=== PATIENT | female | born 1950 | race Caucasian/White ===

== ENCOUNTER → 2023-05-16 10:18 | Outpatient (REF) | payer MEDICARE, OTHER, SELFPAY | LOC: RAD 10:18 | PROVIDERS: ATTENDING PHYSICIAN Physical Medicine & Rehabilitation; FAMILY PHYSICIAN Family Medicine | DX: M25.551 Pain in right hip (principal) | CPT/HCPCS: 73502 ==

== ENCOUNTER → 2023-05-27 09:54 | Outpatient (REF) | payer MEDICARE, OTHER, SELFPAY | LOC: HWRAD 09:54 | PROVIDERS: ATTENDING PHYSICIAN Internal Medicine Gastroenterology; FAMILY PHYSICIAN Family Medicine | DX: K76.0 Fatty (change of) liver, not elsewhere classified (principal) | CPT/HCPCS: 76700 ==

== ENCOUNTER → 2023-06-05 13:28 | Outpatient (REF) | payer MEDICARE, OTHER, SELFPAY | LOC: PAVMRI 13:28 | PROVIDERS: ATTENDING PHYSICIAN Physical Medicine & Rehabilitation; FAMILY PHYSICIAN Family Medicine | DX: M54.16 Radiculopathy, lumbar region (principal) | CPT/HCPCS: 72148 ==

== ENCOUNTER → 2023-06-15 12:59 | Outpatient (REF) | payer MEDICARE, OTHER, SELFPAY | LOC: PAVMRI 12:59 | PROVIDERS: ATTENDING PHYSICIAN Physical Medicine & Rehabilitation; FAMILY PHYSICIAN Family Medicine | DX: M54.12 Radiculopathy, cervical region (principal) | CPT/HCPCS: 72141 ==

== ENCOUNTER → 2023-06-26 10:02 | Outpatient (REF) | payer MEDICARE, OTHER, SELFPAY ==
[2023-06-26 10:34] LABS: % Basophils 1.1 % (0-2); % Eosinophils 3.2 % (0-6); % Immature Granulocytes 0.2 % (0-0.5); % Monocytes 11.8 % (1.7-9.3); % Neutrophils 54.7 % (42.2-75.2); Absolute Basophils 0.1 10^3/uL (0-0.2); Absolute Eosinophils 0.2 10^3/uL (0-0.7); Absolute Lymphocytes 1.4 10^3/uL (1.2-3.4); Absolute Monocytes 0.6 10^3/uL (0.1-0.6); Absolute Neutrophils 2.6 10^3/uL (1.4-6.5); Hematocrit 41.5 % (37.0-47.0); Hemoglobin 14.3 g/dL (12.0-16.0); Mean Corp Hgb Conc. 34.5 g/dL (33.0-37.0); Mean Corpuscular Hgb 32.1 pg (27.0-31.0); Mean Corpuscular Volume 93.3 fL (81.0-99.0); Mean Platelet Volume 9.6 fL (7.4-10.4); Nucleated Red Blood Cells % 0 %; Platelet Count 259 10^3/uL (130-400); Red Blood Cell Count 4.45 10^6/uL (4.20-5.40); Red Cell Dist. Width 11.7 % (11.5-14.5); White Blood Cell Count 4.8 10^3/uL (4.8-10.8)
[2023-06-26 11:02] LABS: ALT (SGPT) 27 U/L (0-35); AST (SGOT) 30 U/L (14-36); Albumin 4.8 g/dl (3.5-5.0); Alkaline Phosphatase 48 U/L (38-126); Blood Urea Nitrogen 17 mg/dl (7-17); Calcium 10.2 mg/dl (8.4-10.2); Carbon Dioxide 25 mmol/L (22-30); Chloride 104 mmol/L (98-107); Glucose 110 mg/dl (70-99); Potassium 4.7 mmol/L (3.5-5.1); Sodium 139 mmol/L (135-145); Total Bilirubin 0.8 mg/dl (0.2-1.3); Total Protein 7.4 g/dl (6.3-8.2); eGFR > 60.00
[2023-06-26 11:21] LABS: Free T4 0.94 ng/dl (0.78-2.19)
[2023-06-26 11:35] LABS: TSH 4.73 uIU/ml (0.47-4.68)
[2023-06-28 02:23] LABS: Total T3 (Sendout) 128 ng/dL (80-200)
== END ==
LOC: REG 10:02
PROVIDERS: ATTENDING PHYSICIAN Family Medicine
DX: R73.09 Other abnormal glucose (principal); I10 Essential (primary) hypertension; E03.8 Other specified hypothyroidism
CPT/HCPCS: 36415; 80053; 84439; 84443; 84480; 85025

== ENCOUNTER → 2023-07-27 15:55 | Outpatient (REF) | payer MEDICARE, OTHER, SELFPAY | LOC: RAD 15:55 | PROVIDERS: ATTENDING PHYSICIAN Family Medicine | DX: R93.89 Abnormal findings on diagnostic imaging of other specified body structures (principal); R91.8 Other nonspecific abnormal finding of lung field; Z68.27 Body mass index [BMI] 27.0-27.9, adult | CPT/HCPCS: 71260; Q9967 ==

== ENCOUNTER → 2023-08-14 17:40 | Outpatient (REF) | payer MEDICARE, OTHER, SELFPAY ==
[2023-08-14 19:20] LABS: Urine Albumin Negative (Neg - Trace); Urine Bilirubin Negative (Negative); Urine Character Clear (Clear); Urine Color Yellow; Urine Glucose Negative (Negative); Urine Ketone Negative (Negative); Urine Leukocyte Trace (Negative); Urine Nitrite Negative (Negative); Urine Occult Blood Negative (Negative); Urine Urobilinogen Negative (Neg - 1+)
== END ==
LOC: CLAB 17:40
PROVIDERS: ATTENDING PHYSICIAN Obstetrics & Gynecology
DX: N39.0 Urinary tract infection, site not specified (principal)
CPT/HCPCS: 81003; 81015; 87086

== ENCOUNTER → 2023-08-22 09:38 | Outpatient (REF) | payer MEDICARE, OTHER, SELFPAY ==
[2023-08-22 10:35] LABS: HDL Cholesterol 86 mg/dl; LDL Cholesterol, Calculated 87 mg/dl; Total Cholesterol 187 mg/dl (50-199); Triglyceride 70 mg/dl (10-149); Very Low Density Lipoprotein 14 mg/dl (0-30)
== END ==
LOC: REG 09:38
PROVIDERS: ATTENDING PHYSICIAN Internal Medicine; FAMILY PHYSICIAN Family Medicine; REFERRING PHYSICIAN Internal Medicine Endocrinology, Diabetes & Metabolism
DX: Q24.5 Malformation of coronary vessels (principal); E78.00 Pure hypercholesterolemia, unspecified
CPT/HCPCS: 36415; 80061

== ENCOUNTER → 2023-12-23 12:55 | Outpatient (REF) | payer MEDICARE, OTHER, SELFPAY | LOC: WDC 12:55 | PROVIDERS: ATTENDING PHYSICIAN Obstetrics & Gynecology; FAMILY PHYSICIAN Family Medicine | DX: Z78.0 Asymptomatic menopausal state (principal); Z12.31 Encounter for screening mammogram for malignant neoplasm of breast | CPT/HCPCS: 77063; 77067; 77080 ==

== ENCOUNTER → 2024-01-02 08:50 | Outpatient (REF) | payer MEDICARE, OTHER, SELFPAY ==
[2024-01-02 10:43] LABS: Blood Urea Nitrogen 16 mg/dl (7-17)
[2024-01-02 10:46] LABS: Free T4 0.78 ng/dl (0.78-2.19)
[2024-01-02 11:00] LABS: TSH 5.15 uIU/ml (0.47-4.68)
== END ==
LOC: REG 08:50
PROVIDERS: ATTENDING PHYSICIAN Family Medicine; OTHER PHYSICIAN Internal Medicine; REFERRING PHYSICIAN Internal Medicine Endocrinology, Diabetes & Metabolism
DX: E04.1 Nontoxic single thyroid nodule (principal); Z01.812 Encounter for preprocedural laboratory examination
CPT/HCPCS: 36415; 82565; 84439; 84443; 84520

== ENCOUNTER → 2024-01-28 12:07 | Outpatient (REF) | payer MEDICARE, OTHER, SELFPAY | LOC: RAD 12:07 | PROVIDERS: ATTENDING PHYSICIAN Family Medicine | DX: R91.8 Other nonspecific abnormal finding of lung field (principal) | CPT/HCPCS: 71260; Q9967 ==

== ENCOUNTER → 2024-03-19 10:12 | Outpatient (REF) | payer MEDICARE, OTHER, SELFPAY ==
[2024-03-19 10:48] LABS: % Basophils 0.9 % (0-2); % Immature Granulocytes 0.2 % (0-0.5); % Monocytes 11.7 % (1.7-9.3); % Neutrophils 54.2 % (42.2-75.2); Absolute Basophils 0.1 10^3/uL (0-0.2); Absolute Eosinophils 0.2 10^3/uL (0-0.7); Absolute Lymphocytes 1.5 10^3/uL (1.2-3.4); Absolute Monocytes 0.6 10^3/uL (0.1-0.6); Absolute Neutrophils 2.9 10^3/uL (1.4-6.5); Hemoglobin 13.9 g/dL (12.0-16.0); Mean Corp Hgb Conc. 35.6 g/dL (33.0-37.0); Mean Corpuscular Hgb 32.2 pg (27.0-31.0); Mean Corpuscular Volume 90.3 fL (81.0-99.0); Mean Platelet Volume 9.5 fL (7.4-10.4); Nucleated Red Blood Cells % 0 %; Platelet Count 221 10^3/uL (130-400); Red Blood Cell Count 4.32 10^6/uL (4.20-5.40); Red Cell Dist. Width 11.8 % (11.5-14.5); White Blood Cell Count 5.3 10^3/uL (4.8-10.8)
[2024-03-19 10:55] LABS: ALT (SGPT) 20 U/L (0-35); AST (SGOT) 28 U/L (14-36); Albumin 4.8 g/dl (3.5-5.0); Alkaline Phosphatase 51 U/L (38-126); Blood Urea Nitrogen 14 mg/dl (7-17); Calcium 9.7 mg/dl (8.4-10.2); Carbon Dioxide 26 mmol/L (22-30); Chloride 100 mmol/L (98-107); Glucose 110 mg/dl (70-99); HDL Cholesterol 63 mg/dl; LDL Cholesterol, Calculated 84 mg/dl; Potassium 4.6 mmol/L (3.5-5.1); Sodium 138 mmol/L (135-145); Total Bilirubin 0.8 mg/dl (0.2-1.3); Total Cholesterol 180 mg/dl (50-199); Total Protein 7.3 g/dl (6.3-8.2); Triglyceride 169 mg/dl (10-149); Very Low Density Lipoprotein 33 mg/dl (0-30); eGFR > 60.00
[2024-03-19 11:31] LABS: TSH Reflex To Free T4 4.23 uIU/ml (0.47-4.68)
[2024-03-19 11:40] LABS: Glycohemoglobin (HgbA1c) 5.3 % (4.0-5.6)
== END ==
LOC: REG 10:12
PROVIDERS: ATTENDING PHYSICIAN Family Medicine
DX: E78.2 Mixed hyperlipidemia (principal); I10 Essential (primary) hypertension; R73.02 Impaired glucose tolerance (oral)
CPT/HCPCS: 36415; 80053; 80061; 83036; 84443; 85025

== ENCOUNTER → 2024-05-26 09:22 | Outpatient (REF) | payer MEDICARE, OTHER, SELFPAY | LOC: RAD 09:22 | PROVIDERS: ATTENDING PHYSICIAN Internal Medicine Gastroenterology; FAMILY PHYSICIAN Family Medicine | DX: K76.0 Fatty (change of) liver, not elsewhere classified (principal) | CPT/HCPCS: 76700 ==

== ENCOUNTER → 2024-07-02 10:50 | Outpatient (REF) | payer MEDICARE, OTHER, SELFPAY ==
[2024-07-02 12:37] LABS: ALT (SGPT) 18 U/L (0-35); AST (SGOT) 26 U/L (14-36); Albumin 4.5 g/dl (3.5-5.0); Alkaline Phosphatase 58 U/L (38-126); Blood Urea Nitrogen 14 mg/dl (7-17); Calcium 10.2 mg/dl (8.4-10.2); Carbon Dioxide 28 mmol/L (22-30); Chloride 103 mmol/L (98-107); Glucose 113 mg/dl (70-99); HDL Cholesterol 64 mg/dl; LDL Cholesterol, Calculated 84 mg/dl; Potassium 4.5 mmol/L (3.5-5.1); Sodium 143 mmol/L (135-145); Total Bilirubin 1.2 mg/dl (0.2-1.3); Total Cholesterol 196 mg/dl (50-199); Total Protein 7.3 g/dl (6.3-8.2); Triglyceride 240 mg/dl (10-149); Very Low Density Lipoprotein 48 mg/dl (0-30); eGFR > 60.00
== END ==
LOC: REG 10:50
PROVIDERS: ATTENDING PHYSICIAN Family Medicine
DX: E78.2 Mixed hyperlipidemia (principal)
CPT/HCPCS: 36415; 80053; 80061

== ENCOUNTER 2024-12-12 13:24 | Inpatient (IN) | payer MEDICARE, OTHER, SELFPAY ==
[2024-12-12] VITALS (11 sets, daily range): BP systolic 138–174; BP diastolic 72–87; BMI 26.6; BMI 25.5
--- NOTE | 2024-12-12 08:05 | ED.GENMED ---
History of Present Illness
General
Chief Complaint: Abdominal Symptoms
Source: patient and ambulance crew
Exam Limitations: none
Time Seen by Provider: 12/12/24 07:55
Nursing documentation reviewed up to this point in time: agreed with
History of Present Illness
History of Present Illness:
Note:
CHIEF COMPLAINT(S)
Headache and vomiting.
HISTORY OF PRESENT ILLNESS
The patient is a 74-year-old female who presented with a chief complaint of headache and vomiting. She reported the onset of symptoms began suddenly with a stomachache yesterday afternoon, which progressively intensified. By 7:30 PM, the patient
experienced vomiting. Subsequent episodes of vomiting occurred at 9:30 PM and 2:30 AM. The patient confirmed that there is no diarrhea, and her bowel movements have been normal. She described her current state as not feeling nauseous, and she does
not feel like she will vomit presently. The patient arrived at the emergency department via ambulance but was not administered any medication en route.
PAST SURGICAL HISTORY
The patient has a history of appendectomy.
SOCIAL HISTORY
The patient reports rare alcohol use and denies the use of tobacco or recreational drugs.
MEDICATIONS
- Hydrochlorothiazide
- Ezetimibe
- Atorvastatin
- Aspirin
- Clopidogrel
PHYSICAL EXAM
General: Alert, no acute distress.
Skin: Warm, dry.
Head: Normocephalic, atraumatic.
Neck: Supple, trachea midline.
Eye Ears, nose, mouth and throat: Oral mucosa moist.
Cardiovascular: Normal peripheral perfusion, No edema.
Respiratory: Respirations are non-labored.
Gastrointestinal : Abdomen nondistended, RLQ vertical incision scar from appendectomy, periumbilical tenderness, no rebound or guarding
Back: Normal range of motion, Normal alignment.
Musculoskeletal: Normal range of motion, normal strength.
Neurological: Alert and oriented to person, place, time, and situation, No focal neurological deficit observed.
Psychiatric: Cooperative, appropriate mood & affect.
PLAN
1. Proceed with a computed tomography (CT) scan to rule out any serious underlying issues.
2. Administer Protonix (pantoprazole) for gastric discomfort, as a substitute for omeprazole.
3. Collect and analyze a urine sample for further diagnostic evaluation.
4. Offer symptomatic relief medication such as antacids to alleviate discomfort, with a consideration of stronger interventions like morphine if symptoms exacerbate.
DIFFERENTIAL DIAGNOSIS
The Differential Diagnosis includes, in no particular order and is not limited to:
1. Gastritis
2. Peptic ulcer disease
3. Gastroesophageal reflux disease (GERD)
4. Viral gastroenteritis
5. Cholecystitis
6. Pancreatitis
7. Acute myocardial infarction
8. Small bowel obstruction
9. Intracranial pathology (e.g., hemorrhage)
10. Medication-induced nausea and vomiting
Note:
CARE-UPDATE
12/12/24 - 11:13
CT scan of the abdomen and pelvis reveals polycystic cysts with pericystic fluid. Consultation with Dr. Whittaker, a general surgeon, is arranged. Ibuprofen and Flagyl prescribed. Plan to admit the patient under hospitalist care. ELIQUIS to be held in
anticipation of potential surgical intervention.
Disposition:
SUMMARY OF ENCOUNTER
The patient is a 74-year-old female who presented to the emergency department with a chief complaint of headache and vomiting. These symptoms developed after an episode of stomachache that began suddenly and intensified throughout the day. Vomiting
occurred multiple times but did not accompany diarrhea. The patients medical history is significant for appendectomy, and she is currently on multiple medications for various conditions including hypertension and hyperlipidemia. In the emergency
department, a CT scan of the abdomen and pelvis revealed polycystic cysts with pericystic fluid. As a result, a consultation with a general surgeon was arranged. Ibuprofen and metronidazole (Flagyl) were prescribed to manage inflammation and
potential infection, respectively. Apixaban (Eliquis) was held in anticipation of possible surgical intervention.
DISPOSITION
Admit to hospitalist care.
MANAGEMENT OF THE PATIENTS CARE WAS DISCUSSED WITH
Consultation with Dr. Whittaker, a general surgeon, was arranged to evaluate potential surgical intervention due to findings on the CT scan.
PLAN
Proceed with the evaluation by a general surgeon for potential surgical intervention. Administer ibuprofen for pain management and metronidazole for suspected infection. Hold apixaban due to potential surgery.
INDEPENDENT REVIEW OF LABS AND INTERPRETATION OF TESTS
My independent review of the CT scan indicates polycystic cysts with pericystic fluid.
MEDICAL DECISION MAKING
- Number and Complexity of Problems Addressed: Chronic conditions affecting care with a Differential Diagnosis list that includes gastritis, peptic ulcer disease, GERD, viral gastroenteritis, cholecystitis, pancreatitis, acute myocardial infarction,
small bowel obstruction, intracranial pathology such as hemorrhage, and medication-induced nausea and vomiting.
- Data:
Category 1:
- CT scan of the abdomen and pelvis ordered and independently interpreted.
Category 3:
- Discussion of management with Dr. Whittaker, a general surgeon, regarding surgical evaluation.
- Risk:
Prescription medication management includes holding apixaban in anticipation of potential surgical intervention.
DIAGNOSIS
- Acute cholecystitis
- Nausea and vomiting (ICD-10: R11.2)
Phy Exam
Physical Exam
Physical Exam:
.
Course
Orders/Labs/Results
Orders:
Orders
12/12/24 08:04
CT Abd/Pel (IV only)-[facility] only Urgent
Comment:
Reason For Exam: periumbilcal pain, vomiting since yesterday aftern
12/12/24 08:05
IV Insert/Care/Rem.- Treatment PRN
0.9% Sodium Chloride 1000 ml [Nss] 1,000 ml IV BOLUS
Ondansetron Injectable [Zofran] 4 mg IV NOW STA
Pantoprazole [Protonix IV] 40 mg IV NOW STA
12/12/24 08:21
Basic Metabolic Panel Urgent
Complete Blood Count/With Diff Urgent
Lipase Urgent
12/12/24 09:44
Urinalysis Reflex To Culture Urgent
Date Specimen was Collected: 12/12/24
Time Specimen was Collected: 09:41
12/12/24 09:59
LFT [Vbytv-Hhmz-Umrhlwk] Urgent
Potassium Urgent
12/12/24 11:13
LevoFLOXacin 750 MG/150 ML [Levaquin] 750 mg in 150 ml IV NOW
MetroNIDAZOLE 500 MG/100 ML [Flagyl 500 mg] 100 ml IV NOW
Ondansetron Injectable [Zofran] 4 mg IV NOW STA
12/12/24 12:03
HYDROmorphone [Dilaudid] 0.25 mg IV NOW STA
Abnormal Lab Results
12/12/24 12/12/24
08:21 09:59
RBC 4.17 L 10^6/uL
(4.20-5.40)
MCH 31.9 H pg
(27.0-31.0)
Abs Immat Gran (auto) 0.1 H 10^3/uL
(0-0.05)
Absolute Neuts (auto) 8.7 H 10^3/uL
(1.4-6.5)
Absolute Lymphs (auto) 0.6 L 10^3/uL
(1.2-3.4)
Neutrophils % 87.0 H %
(42.2-75.2)
Lymphocytes % 6.1 L %
(20.5-51.1)
Sodium 132 L mmol/L
(135-145)
Potassium 3.4 L mmol/L
(3.5-5.1)
Chloride 96 L mmol/L
(98-107)
Creatinine 0.5 L mg/dL
(0.6-1.0)
Glucose 141 H mg/dl
(70-99)
12/12/24 08:21
12/12/24 09:59
Vital Signs
Initial and Last Documented VS:
Initial Vital Signs
Temp Pulse Resp BP Pulse Ox
98.9 F 78 17 148/78 96
12/12/24 07:48 12/12/24 07:48 12/12/24 07:48 12/12/24 07:48 12/12/24 07:48
Last Documented Vital Signs
Temp Pulse Resp BP Pulse Ox
98.9 F 75 18 148/78 96
12/12/24 07:48 12/12/24 08:13 12/12/24 08:00 12/12/24 07:48 12/12/24 08:07
*Pulse Oximetry
SaO2: 96
Oxygen Mode of Delivery: Room air
Patient hypoxic: no
*Critical Care Note
Total Time (30-74mins, 75-104mins- exclusive of procedures): Not Applicable
ED Attending Note
-
Portions of this chart may have been created with voice recognition software.� Occasional wrong word or��sound alike� substitutions may have occurred due to the inherent limitations of voice recognition software.
Discharge Plan
Departure
Patient Disposition: Admit
Date of Disposition: 12/12/24
Time of Disposition: 11:10
Admit to: Med/Surg
Presentation/result/management discussed w/ accepting MD/DO: Hospitalist
Patient with high blood pressure during this ER visit?: Yes
Condition: Fair
Discharge Problem:
Acute cholecystitis
Prescriptions:
No Action
metoprolol succinate 100 MG tablet extended release 24 hr
100 mg PO HS
amlodipine 5 MG tablet
5 mg PO DAILY
desloratadine 5 MG tablet
5 mg PO DAILY
vitamin B complex [B-Complex] 1 TAB tablet
1 tab PO DAILY
[place] 3-6-9 1,200 MG capsule
1,200 mg PO BID
Glucosamine Chondroitin 1 EACH capsule
1 cap PO DAILY
cranberry 500 MG capsule
500 mg PO HS
Ni-C with Bioflavonoids 1 EACH tablet
1 tab PO DAILY
evening primrose oil [[place]] 500 mg Capsule
1,000 mg PO DAILY
rosuvastatin [Crestor] 5 mg Tablet
5 mg PO QPM
calcium carbonate-vitamin D3 [Calcium 500 + D] 500 mg-10 mcg (400 unit) Tablet
1 tab PO DAILY
Eliquis 5 mg Tablet
5 mg PO BID
Ocu Support
3 cap PO DAILY
omeprazole 20 mg Capsule,Delayed Release(Dr/Ec)
20 mg PO DAILY
sertraline 50 mg Tablet
50 mg PO DAILY
olopatadine [Pataday] 0.2 % Drops
1 drp BOTH EYES DAILY
Xlear
1 spray intranasal DAILY
Referrals:
Shayna Jain MD [Family Provider, Family Practice]
Interventions
Interventions:
*Risk Screen - Suicide Last Done: 12/12/24 08:09
*General Assessment Last Done: 12/12/24 08:10
*Neglect/Abuse Screening Last Done: 12/12/24 08:09
*ED- Fall Risk Assessment Last Done: 12/12/24 08:07
*ED COVID-19 Vaccine History Last Done: 12/12/24 08:07
IE-Jqsufw-Vaqkxqqrnb Assessment Last Done: 12/12/24 08:00
Discharge Date and Time
Print Language: EAST TIMOR[place]
[2024-12-12] MEDS: NSS 1000 IV ×3 (08:18→23:18)
[2024-12-12] MEDS: PROTONIX IV 40 MG IV (08:29)
[2024-12-12] MEDS: ZOFRAN 4 MG IV ×2 (08:30→11:56)
[2024-12-12 08:53] LABS: Blood Urea Nitrogen 13 mg/dl (7-17); Calcium 9.8 mg/dl (8.4-10.2); Carbon Dioxide 26 mmol/L (22-30); Chloride 96 mmol/L (98-107); Estimated Creatinine Clearance 73 ml/min; Glucose 141 mg/dl (70-99); Lipase 113 U/L (23-300); Sodium 132 mmol/L (135-145); eGFR > 60.00
[2024-12-12 08:58] LABS: Hematocrit 37.4 % (37.0-47.0); Hemoglobin 13.3 g/dL (12.0-16.0); Mean Corp Hgb Conc. 35.6 g/dL (33.0-37.0); Mean Corpuscular Volume 89.7 fL (81.0-99.0); Nucleated Red Blood Cells % 0 %; Platelet Count 198 10^3/uL (130-400); Red Cell Dist. Width 11.5 % (11.5-14.5)
[2024-12-12 09:57] LABS: Urine Character Clear (Clear)
[2024-12-12 10:28] LABS: ALT (SGPT) 18 U/L (0-35); AST (SGOT) 26 U/L (14-36); Albumin 4.6 g/dl (3.5-5.0); Alkaline Phosphatase 54 U/L (38-126); Potassium 3.4 mmol/L (3.5-5.1); Total Protein 7.1 g/dl (6.3-8.2)
[2024-12-12] MEDS: FLAGYL 500 MG 100 IV ×2 (11:59→19:47)
[2024-12-12] MEDS: DILAUDID 0.25 MG IV (12:07)
--- NOTE | 2024-12-12 12:29 | HPS.HSE ---
Family Physician
-
Family Physician: Shayna Jain MD
Chief Complaint
-
Abdominal pain, nausea and vomiting
History of Present Illness
74 year old female with past medical history of paroxysmal atrial fibrillation with implantable loop recorder on Eliquis, Hypertension, hiatal hernia, GERD, DDD, Hyperlipidemia, MASH, Zenker's diverticulum, depression, subclinical hypothyroidism,
benign gallstones demonstrated on imaging presents with one day history of abdominal pain in the right upper quadrant radiating to the mid-abdomen, associated with nausea, 3 episodes of vomiting, and anorexia. She denies fever, jaundice, and changes
in urine/stool color.
CT demonstrates cholelithiasis, noted from previous studies, but now accompanied by pericholecystic fluid.
Medical History
Past Medical History
Past Medical History: Reports Arrhythmia, GERD, HTN, Hypercholesterolemia and Hypothyroidism (Sublinical)
Additional Past Medical History:
Hiatal hernia
MASH
Past Surgical History: Reports Appendectomy (1961) and Tonsilectomy (1954)
Additional Past Surgical History:
Breast Lumpectomy (1983), Left Knee Arthroscopy, Basal cell excision x2
Social History
Tobacco: Former Smoker
Alcohol: Occasional
Drug: None
Personal:
Living: With Family
Employment: Retired
Family History
Family History: Other (father and sister- (+) unspecified gallbladder problem )
Allergies / Home Medications
Allergies reflects when Allergies were last updated in [employer].
Home Medications with original date entered in [employer]
Allergy/Medication List:
Allergies
Allergy/AdvReac Type Severity Reaction Status Date / Time
codeine Allergy Unknown Verified 01/16/20 07:37
hydrochlorothiazide Allergy Unknown Verified 01/16/20 08:01
nitrofurantoin (From Allergy Unknown Verified 01/16/20 07:37
Macrodantin)
Penicillins Allergy Unknown Verified 01/16/20 07:37
sulfamethoxazole (From Allergy Unknown Verified 01/16/20 07:37
Bactrim)
trimethoprim (From Bactrim) Allergy Unknown Verified 01/16/20 07:37
Home Medications
amlodipine 5 mg tablet 5 mg PO DAILY 01/16/20
desloratadine 5 mg tablet 5 mg PO DAILY 01/16/20
fish, borage, flaxseed oils-omega 3,6,9 comb no.1 1,200 mg capsule ([place] 3-6-9) 1,200 mg PO BID 01/16/20
glucosamine sulf dipot chlr,msm,chond 550 mg-C 30 mg-sondra 1 mg capsule (Glucosamine Chondroitin) 1 cap PO DAILY 01/16/20
metoprolol succinate 100 mg tablet,extended release 24 hr 100 mg PO HS 01/16/20
vitamin B complex (B-Complex tablet) 1 tab PO DAILY 01/16/20
ascorbate calcium-bioflavonoid 1,000 mg-200 mg tablet (Ni-C with Bioflavonoids) 1 tab PO DAILY 03/13/21
cranberry 500 mg capsule 500 mg PO HS 03/13/21
Ocu Support 3 cap PO DAILY 12/12/24
Xlear 1 spray intranasal DAILY 12/12/24
apixaban 5 mg tablet (Eliquis) 5 mg PO BID 12/12/24
calcium 500 mg (as carbonate)-vitamin D3 10 mcg (400 unit) tablet (Calcium 500 + D) 1 tab PO DAILY 12/12/24
evening primrose oil 500 mg capsule 1,000 mg PO DAILY 12/12/24
olopatadine 0.2 % eye drops 1 drp BOTH EYES DAILY 12/12/24
omeprazole 20 mg capsule,delayed release 20 mg PO DAILY 12/12/24
rosuvastatin 5 mg tablet (Crestor) 5 mg PO QPM 12/12/24
sertraline 50 mg tablet 50 mg PO DAILY 12/12/24
Review of Systems
-
A 12 point ROS was completed and negative except as noted: Yes
Physical Exam
Vital Signs
Vital Signs
Temp Pulse Resp BP Pulse Ox
98.9 F 75 18 148/78 96
12/12/24 07:48 12/12/24 08:13 12/12/24 08:00 12/12/24 07:48 12/12/24 08:07
Physical Exam
General: Conversant and Pain; No Fever
HEENT: NormoCephalic and Anicteric
Respiratory: Non Labored Respirations
Cardiac: S1/S2 and Regular Rhythm
GI: Soft, Non Distended, Normal Bowel Sounds and Tender ((+) Wilkerson's sign)
Musculoskeletal: No Edema
Skin: Warm
Neuro: AO x 3
Psych: Calm
Laboratory Results
-
12/12/24 08:21
12/12/24 09:59
Laboratory Results
Total Bilirubin 0.8 mg/dl (0.2-1.3) 12/12/24 09:59
AST 26 U/L (14-36) 12/12/24 09:59
ALT 18 U/L (0-35) 12/12/24 09:59
Alkaline Phosphatase 54 U/L (38-126) 12/12/24 09:59
Lipase 113 U/L (23-300) 12/12/24 08:21
Data Reviewed
-
CT Scan: Image Personally Visualized and interpreted (by attending surgeon), Report Reviewed by me (and attending surgeon) and Discussed with Patient (with attending surgeon)
Impression/Plan
-
IMPRESSION: 74 year old female with past medical history of paroxysmal atrial fibrillation on Eliquis, Hypertension, hiatal hernia, GERD, Hyperlipidemia, MASH, subclinical hypothyroidism and gallstones demonstrated on previous imaging, presents
with 1 day onset abdominal pain, associated with nausea and vomiting. CT demonstrates cholelithiasis, noted from previous studies, but now accompanied by pericholecystic fluid. Imaging, laboratory, and exam all consistent with acute cholecystitis.
PLAN:
For Laparoscopic Cholecystectomy
NPO
IV fluids
IV Antibiotics
Supportive care (Pain management, Antiemetics)
--- NOTE | 2024-12-12 12:50 | HPS.HSE ---
Family Physician
-
Family Physician: Shayna Jain MD
Chief Complaint
-
abd pain
vomiting
History of Present Illness
74 y/o F, hx of A. Fib, HTN, HLD, GERD, Depression presenting to ER with 1 day history of abd pain and vomiting. She reports abd pain began around 430pm Thursday. Reports its epigastric and RUQ, 7/10, dull/aching, constant pain. She reports ongoing
symptoms resulting in bouts of nausea and recurrent vomiting (no blood). She was only able to keep sips of bud humaira down. Denies diarrhea. No fever/chills.
in ER; CT showed cholelithiasis. Findings suspicious for acute cholecystitis in the proper clinical setting. No bile duct dilatation.
Patient last dose of Eliquis was Thursday 9 AM.
Medical History
Past Medical History
Past Medical History: Reports Other (A. Fib, HTN, HLD, GERD, Depression)
Past Surgical History: Reports Appendectomy and Tonsilectomy
Social History
Tobacco: Non-smoker
Alcohol: None
Drug: None
Family History
Family History: Not pertinent
Allergies / Home Medications
Allergies reflects when Allergies were last updated in [employer].
Home Medications with original date entered in [employer]
Allergy/Medication List:
Allergies
Allergy/AdvReac Type Severity Reaction Status Date / Time
codeine Allergy Unknown Verified 01/16/20 07:37
hydrochlorothiazide Allergy Unknown Verified 01/16/20 08:01
nitrofurantoin (From Allergy Unknown Verified 01/16/20 07:37
Macrodantin)
Penicillins Allergy Unknown Verified 01/16/20 07:37
sulfamethoxazole (From Allergy Unknown Verified 01/16/20 07:37
Bactrim)
trimethoprim (From Bactrim) Allergy Unknown Verified 01/16/20 07:37
Home Medications
amlodipine 5 mg tablet 5 mg PO DAILY 01/16/20
desloratadine 5 mg tablet 5 mg PO DAILY 01/16/20
fish, borage, flaxseed oils-omega 3,6,9 comb no.1 1,200 mg capsule ([place] 3-6-9) 1,200 mg PO BID 01/16/20
glucosamine sulf dipot chlr,msm,chond 550 mg-C 30 mg-sondra 1 mg capsule (Glucosamine Chondroitin) 1 cap PO DAILY 01/16/20
metoprolol succinate 100 mg tablet,extended release 24 hr 100 mg PO HS 01/16/20
vitamin B complex (B-Complex tablet) 1 tab PO DAILY 01/16/20
ascorbate calcium-bioflavonoid 1,000 mg-200 mg tablet (Ni-C with Bioflavonoids) 1 tab PO DAILY 03/13/21
cranberry 500 mg capsule 500 mg PO HS 03/13/21
Ocu Support 3 cap PO DAILY 12/12/24
Xlear 1 spray intranasal DAILY 12/12/24
apixaban 5 mg tablet (Eliquis) 5 mg PO BID 12/12/24
calcium 500 mg (as carbonate)-vitamin D3 10 mcg (400 unit) tablet (Calcium 500 + D) 1 tab PO DAILY 12/12/24
evening primrose oil 500 mg capsule 1,000 mg PO DAILY 12/12/24
olopatadine 0.2 % eye drops 1 drp BOTH EYES DAILY 12/12/24
omeprazole 20 mg capsule,delayed release 20 mg PO DAILY 12/12/24
rosuvastatin 5 mg tablet (Crestor) 5 mg PO QPM 12/12/24
sertraline 50 mg tablet 50 mg PO DAILY 12/12/24
Review of Systems
-
History Source: Patient
A 12 point ROS was completed and negative except as noted: Yes
Physical Exam
Vital Signs
Vital Signs
Temp Pulse Resp BP Pulse Ox
98.9 F 79 16 174/87 95
12/12/24 07:48 12/12/24 12:15 12/12/24 12:15 12/12/24 12:00 12/12/24 12:15
Physical Exam
General: No Apparent Distress
HEENT: NormoCephalic and Anicteric
Respiratory: Clear; No Wheezes or Rales
Cardiac: S1/S2 and Regular Rhythm
GI: Tender (RUQ and epigastric) and Distended
Neuro: AO x 3
Psych: Calm
Laboratory Results
-
12/12/24 08:21
12/12/24 09:59
Laboratory Results
Total Bilirubin 0.8 mg/dl (0.2-1.3) 12/12/24 09:59
AST 26 U/L (14-36) 12/12/24 09:59
ALT 18 U/L (0-35) 12/12/24 09:59
Alkaline Phosphatase 54 U/L (38-126) 12/12/24 09:59
Lipase 113 U/L (23-300) 12/12/24 08:21
Data Reviewed
-
CT Scan: Report Reviewed by me
Lab Data: Labs Reviewed by me
Impression/Plan
-
Assessment:
Abdominal pain/vomiting, suspected acute cholecystitis
- CT: cholelithiasis. Findings suspicious for acute cholecystitis in the proper clinical setting. No bile duct dilatation.
- LFTs normal
- pain control, IVF, anti-emetics
- Levaquin/Flagyl, day 1
- NPO pending GS evaluation for possible surgical intervention
Parox A. Fib
- hold Eliquis; last dose Thursday 9 AM
- continue Metoprolol HS
Essential HTN
- continue Metoprolol HS
- continue Norvasc
HLD - statin
Depression
- continue Zoloft
Basal cell cancer history
DVT ppx: SCDs
Code: Full
[2024-12-12] MEDS: LEVAQUIN 150 IV (13:17)
--- NOTE | 2024-12-12 14:04 | CON.GS ---
Addendum entered and electronically signed by Bong Whittaker MD 12/12/24 16:44:
I saw and examined the patient independently.
The resident's documentation was reviewed and I agree with the note, assessment and plan except where noted below.
Comment: This is a 74-year-old female who with a history of atrial fibrillation on Eliquis (last dose 12/11/2024 AM), prior open appendectomy as a child who presents with 1 day of right upper quadrant abdominal pain. Exam, imaging, blood work all
consistent with acute cholecystitis.
Will plan for a laparoscopic cholecystectomy in the OR tomorrow, this will allow for her Eliquis to fully washout.
N.p.o., IV fluids, IV antibiotics.
Risks/Benefits/Alternatives, expected postoperative course and possible complications (bleeding, infection, injury to surrounding structures, acute/chronic pain) discussed at length. Patient wishes to proceed with surgery. All questions answered.
Consent obtained.
I spent 75 minutes in total for the care of this patient today including direct patient care and counseling, reviewing labs, imaging, coordination of care, as well as documentation.
Original Note:
Consultation
-
Date/Time Consultation Requested: 11:00
Date/Time Consultation Performed: 13:00
Requesting Provider: Libby Dash
Performing Provider: Julia Talbert
Reason for Consultation: Acute Cholecystitis
Medical History
-
Chief Complaint: Abdominal pain, nausea and vomiting
History of Present Illness:
74 year old female with past medical history of paroxysmal atrial fibrillation with implantable loop recorder on Eliquis, Hypertension, hiatal hernia, GERD, DDD, Hyperlipidemia, MASH, Zenker's diverticulum, depression, subclinical hypothyroidism,
benign gallstones demonstrated on imaging presents with one day history of abdominal pain in the right upper quadrant radiating to the mid-abdomen, associated with nausea, 3 episodes of vomiting, and anorexia. She denies fever, jaundice, and changes
in urine/stool color.
CT demonstrates cholelithiasis, noted from previous studies, but now accompanied by pericholecystic fluid.
Past Medical History
Past Medical History: Arrhythmias (Paroxysmal Atrial Fibrillation with implantable loop recorder on Eliquis), GERD, HTN, Hypercholesterolemia, Hypothyroidism (Subclinical) and Other (Hiatal hernia, MASH, Depression, Zenker's Diverticulum)
Past Surgical History: Appendectomy (1961), Tonsilectomy (1954) and Other (Breast Lumpectomy (1983), Left Knee Arthroscopy, Basal cell excision x2)
Social History
Tobacco: Former Smoker
Alcohol: Occasional
Drug: None
Personal:
Living: With Family
Employment: Retired
Family History
Family History: Other (sister, father: (+) unspecified gallbladder problems)
Allergies / Home Medications
Allergy/AdvReac Type Severity Reaction Status Date / Time
codeine Allergy Unknown Verified 01/16/20 07:37
hydrochlorothiazide Allergy Unknown Verified 01/16/20 08:01
nitrofurantoin (From Allergy Unknown Verified 01/16/20 07:37
Macrodantin)
Penicillins Allergy Unknown Verified 01/16/20 07:37
sulfamethoxazole (From Allergy Unknown Verified 01/16/20 07:37
Bactrim)
trimethoprim (From Bactrim) Allergy Unknown Verified 01/16/20 07:37
�Medication �Instructions �Recorded �Confirmed �Type
amlodipine 5 mg tablet 5 mg PO DAILY 01/16/20 12/12/24 History
desloratadine 5 mg tablet 5 mg PO DAILY 01/16/20 12/12/24 History
fish, borage, flaxseed oils-omega 1,200 mg PO BID 01/16/20 12/12/24 History
3,6,9 comb no.1 1,200 mg capsule
([place] 3-6-9)
glucosamine sulf dipot 1 cap PO DAILY 01/16/20 12/12/24 History
chlr,msm,chond 550 mg-C 30 mg-sondra
1 mg capsule (Glucosamine
Chondroitin)
metoprolol succinate 100 mg 100 mg PO HS 01/16/20 12/12/24 History
tablet,extended release 24 hr
vitamin B complex (B-Complex 1 tab PO DAILY 01/16/20 12/12/24 History
tablet)
ascorbate calcium-bioflavonoid 1 tab PO DAILY 03/13/21 12/12/24 History
1,000 mg-200 mg tablet (Ni-C
with Bioflavonoids)
cranberry 500 mg capsule 500 mg PO HS 03/13/21 12/12/24 History
Ocu Support 3 cap PO DAILY 12/12/24 12/12/24 History
Xlear 1 spray intranasal DAILY 12/12/24 12/12/24 History
apixaban 5 mg tablet (Eliquis) 5 mg PO BID 12/12/24 12/12/24 History
calcium 500 mg (as 1 tab PO DAILY 12/12/24 12/12/24 History
carbonate)-vitamin D3 10 mcg (400
unit) tablet (Calcium 500 + D)
evening primrose oil 500 mg capsule 1,000 mg PO DAILY 12/12/24 12/12/24 History
olopatadine 0.2 % eye drops 1 drp BOTH EYES DAILY 12/12/24 12/12/24 History
omeprazole 20 mg capsule,delayed 20 mg PO DAILY 12/12/24 12/12/24 History
release
rosuvastatin 5 mg tablet (Crestor) 5 mg PO QPM 12/12/24 12/12/24 History
sertraline 50 mg tablet 50 mg PO DAILY 12/12/24 12/12/24 History
Review of Systems
-
History Source: Patient
A 10 point review of systems was completed, and was negative except as per HPI.
Physical Exam
Vital Signs
Temp Pulse Resp BP Pulse Ox
98.9 F 79 16 174/87 95
12/12/24 07:48 12/12/24 12:15 12/12/24 12:15 12/12/24 12:00 12/12/24 12:15
12/11/24 12/12/24 12/13/24
06:59 06:59 06:59
Actual Weight 72.5 kg
Body Mass Index (BMI) 26.6
Lab Results
12/12/24 08:21
12/12/24 09:59
WBC 10.0 10^3/uL (4.8-10.8) 12/12/24 08:21
Hgb 13.3 g/dL (12.0-16.0) 12/12/24 08:21
Hct 37.4 % (37.0-47.0) 12/12/24 08:21
Plt Count 198 10^3/uL (130-400) 12/12/24 08:21
Abs Immat Gran (auto) 0.1 10^3/uL (0-0.05) H 12/12/24 08:21
Neutrophils % 87.0 % (42.2-75.2) H 12/12/24 08:21
Physical Exam
General: Pain; Negative Fever
HEENT: Normocephalic and Anicteric
Respiratory: Non Labored Respirations
Cardiac: S1/S2 and Regular Rhythm
GI: Soft, Non Distended, Normal Bowel Sounds, Tender (RUQ) and Other ((+) Wilkerson's sign)
Musculoskeletal: No Edema
Skin: Warm
Neuro: AO x 3
Psych: Calm
Data Reviewed
-
CT Scan: Image Personally Visualized and interpreted (by attending surgeon), Report Reviewed by me (and attending surgeon) and Discussed with Patient (with attending surgeon)
Assessment / Plan
-
IMPRESSION: 74 year old female with past medical history of paroxysmal atrial fibrillation on Eliquis, Hypertension, hiatal hernia, GERD, Hyperlipidemia, MASH, subclinical hypothyroidism and� gallstones demonstrated on previous imaging, presents
with 1 day onset abdominal pain, associated with nausea and vomiting. CT demonstrates cholelithiasis, noted from previous studies, but now accompanied by pericholecystic fluid. Imaging, laboratory, and exam all consistent with acute cholecystitis.
PLAN:
For Laparoscopic Cholecystectomy
NPO
IV fluids
IV Antibiotics
Supportive care (Pain management, Antiemetics)
[2024-12-12] MEDS: TORADOL 10 MG IV ×2 (15:02→23:20)
--- NOTE | 2024-12-12 16:39 | PTCARENOTE ---
1415 Pt arrived from ED. Pt AAOX3. VSS. able to ambulate from stretcher to bed. medicated for pain per MAR. Oriented to room and call shook. Bed locked and in lowest position.
[2024-12-12] MEDS: OLOPATADINE 0.1% OPHTHALMIC SOLUTION 1 DROP OPHTH (19:48)
[2024-12-12] MEDS: TOPROL XL 100 MG PO (21:50)
[2024-12-13] VITALS (11 sets, daily range): BP systolic 112–146; BP diastolic 58–80
[2024-12-13] MEDS: FLAGYL 500 MG 100 IV ×2 (03:16→12:45)
--- NOTE | 2024-12-13 07:14 | W.SUR.PREOP ---
Pre-Operative Surgical Note
-
I have examined this patient prior to the performance of the scheduled procedure.
The patient's condition is unchanged from the time of the current History and
Physical and the patient is able to undergo the scheduled procedure.
[2024-12-13 07:15] LABS: ALT (SGPT) 13 U/L (0-35); AST (SGOT) 20 U/L (14-36); Albumin 3.8 g/dl (3.5-5.0); Alkaline Phosphatase 50 U/L (38-126); Blood Urea Nitrogen 11 mg/dl (7-17); Calcium 9.2 mg/dl (8.4-10.2); Carbon Dioxide 27 mmol/L (22-30); Chloride 106 mmol/L (98-107); Estimated Creatinine Clearance 62 ml/min; Glucose 104 mg/dl (70-99); Potassium 3.5 mmol/L (3.5-5.1); Sodium 137 mmol/L (135-145); Total Protein 6.2 g/dl (6.3-8.2); eGFR > 60.00
[2024-12-13 07:33] LABS: Hematocrit 33.6 % (37.0-47.0); Hemoglobin 11.7 g/dL (12.0-16.0); Mean Corp Hgb Conc. 34.8 g/dL (33.0-37.0); Mean Corpuscular Volume 92.1 fL (81.0-99.0); Platelet Count 154 10^3/uL (130-400); Red Cell Dist. Width 11.9 % (11.5-14.5)
--- NOTE | 2024-12-13 08:45 | W.IMMPOSTOP ---
Surgical Immed Post Op Note
-
Primary Surgeon: Bong Whittaker MD
Assisting Surgeon: None
Pre-op Diagnosis: Acute cholecystitis
Post-op Diagnosis: Same
Procedure Performed: Laparoscopic cholecystectomy with cholangiogram
Anesthesia Type: General
Specimen / Cultures: Gallbladder and contents
Estimated Blood Loss: 11 cc
Complications: None
Operative Findings: Acutely inflamed and edematous gallbladder. Critical view of safety obtained prior to a cholangiogram which demonstrated normal biliary anatomy and no distal filling defects. Duct ligated with a clip followed by 0 PDS Endoloop.
While removing the gallbladder through our epigastric port the cardona-yellow stones were removed and hydrops evacuated to avoid unnecessary dilation of the port site.
POST OP PLAN:
Imaging: None
Labs: Routine AM
Diet: Advance to Regular as tolerated
Analgesia: Tylenol 650mg q6 [place], Dilaudid 0.5mg q2h PRN
Neuro/vascular checks: Per unit protocol
AC/AP: Hold Therapeutic AC until 12/16/2024, Ok for DVT PPx
Activity: Ad Lena
Wound/Incisions/Drains: Routine
Abx: Will continue while admitted
Dispo: RNF, anticipate discharge home later today versus tomorrow pending clinical course.
--- NOTE | 2024-12-13 08:48 | OR.RPT ---
Operative Report
Operative Report
Patient Name: Leanna Lr
: 1950
Date of Operation: 12/13/2024
Preoperative Diagnosis: Acute cholecystitis
Postoperative Diagnosis: Same
Procedure(s):
Laparoscopic Cholecystectomy with Cholangiogram
Surgeon(s):
Dr. Whittaker
Property Assessment Monitor(s):
ARIN Phipps
Anesthesia: General
Estimated Blood Loss: 11 cc
Urine Output: None
Drains/Lines/Implants: None
Specimens:
1. Gallbladder and contents
HPI/Surgical Indications:
This is a 74-year-old female who presents with 2 days of right upper quadrant abdominal pain. Exam, labs and imaging are consistent with acute cholecystitis. Risks/Benefits/Alternatives were discussed at length, and the patient agreed to proceed
with surgery after allowing for 48 hours for her Eliquis to washout.
Operative Findings: Acutely inflamed and edematous gallbladder. Critical view of safety obtained prior to a cholangiogram which demonstrated normal biliary anatomy and no distal filling defects. Duct ligated with a clip followed by 0 PDS Endoloop.
While removing the gallbladder through our epigastric port cardona-yellow stones were removed and hydrops evacuated to avoid unnecessary dilation of the port site.
Procedure Description:
The patient was brought to the Operating Room and placed in the supine position with one arm tucked. Following uneventful induction of general endotracheal anesthesia, an orogastric tube was placed. The abdomen was prepped and draped in the usual
sterile fashion. A timeout was performed confirming the procedure, consent, and that IV antibiotics were infused and sequential compression devices were confirmed to be on. The abdomen was entered using a left subcostal Veress technique which
required a single pass followed by a 5 mm right upper quadrant Optiview trocar. Pneumoperitoneum to 15 mmHg pressure was obtained without difficulty and we confirmed that no injury had occurred during our entry. The patient was positioned in
reverse Trendelenberg and rotated with the right side up slightly. Two 5 mm trocars were then placed along the right subcostal margin, followed by a 12 mm port in the epigastrium. The gallbladder was distended but we were able to place a locking
grasping forceps on the fundus of the gallbladder where it was then retracted cephalad and to the right. Using appropriate grasping instruments, the peritoneum overlying the triangle of Calot was incised and extended superiorly on both the anterior
and posterior gallbladder holliday. The infundibulum was dissected off the cystic plate. The cystic triangle was dissected until a critical view of safety was achieved. The cystic artery was medialized, dissected and controlled with 2 proximal clips
and 1 distal. The cystic duct/gallbladder junction in turn was identified, dissected circumferentially and a clip was placed. A ductotomy was made and a cholangiocatheter on an Patel clamp was inserted into the cystic duct. A C-arm was draped and
brought into the field. An intra-operative cholangiogram was performed and was noted to have:
No filling defects in the biliary tree
No significant biliary dilation
Brisk flow of contrast into the duodenum
Normal biliary anatomy
The catheter was then removed and the cystic duct was controlled with a clip followed by 0 PDS Endoloop. After ensuring both the artery and duct were divided, the gallbladder was freed from the liver using electrocautery. There was some spillage
of bile from the ductotomy, but no spillage of stones. The gallbladder bed was inspected and excellent hemostasis was obtained. The gallbladder was extracted through the 12 mm trocar site using an endocatch bag. While removing the gallbladder
through our epigastric port cardona-yellow stones were removed and hydrops evacuated to avoid unnecessary dilation of the port site. The abdomen was again irrigated and excellent hemostasis was assured. All remaining trocars were then removed and the
pneumoperitoneum was evacuated. The 12 mm trocar site was closed using 0 PDS suture. All trocar sites were closed at the skin level using 4-0 Monocryl followed by Dermabond. Overall, the patient tolerated the procedure well and was taken to the
Recovery Room postoperatively in stable condition.
I was the attending physician and performed the procedure with assistance from the PA student above. I was present for all portions of the case.
Bong Whittaker MD
[2024-12-13] MEDS: ZOFRAN 4 MG IV (09:02)
[2024-12-13] MEDS: TORADOL 10 MG IV (09:29)
[2024-12-13] MEDS: COMPAZINE 5 MG IV (09:47)
--- NOTE | 2024-12-13 09:59 | CM ---
Patient unavailable - in OR
Laparoscopic Cholecystectomy with Cholangiogram
CM will follow-up with patient for dispo planning/needs
--- NOTE | 2024-12-13 10:12 | PTCARENOTE ---
Pt arrived 1005 from PACU. Pt AAOX3. VSS. 97% on 2L O2. 5 lap sites open to air with glue. bed locked and in lowest position.
--- NOTE | 2024-12-13 11:29 | W.PN.HOSP.TC ---
Today's Communication/Plan
-
DC this afternoon vs tomorrow; will reassess with patient at 4pm
monitor pain control and diet tolerance
Assessment / Plan
Assessment / Plan
Assessment:
Abdominal pain/vomiting, suspected acute cholecystitis
- CT: cholelithiasis. Findings suspicious for acute cholecystitis in the proper clinical setting. No bile duct dilatation.
- s/p lap evans 12/12/24
- pain control, anti-emetics
- Levaquin/Flagyl, day 2 - no further antibiotics at discharge
- diet: regular
- GS f/u
Parox A. Fib
- hold Eliquis until 12/16/24 per GS
- continue Metoprolol HS
Essential HTN
- continue Metoprolol HS
- continue Norvasc
HLD - statin
Depression
- continue Zoloft
Basal cell cancer history
DVT ppx: SCDs
Code: Full
Anticipated Discharge: Within 24 hours
Subjective/Interval History
-
Date of Service: December 13, 2024
seen s/p lap evans
pain bearable
Objective Data
-
Labs:
Laboratory Results
12/13/24
06:05
WBC 5.1
Hgb 11.7 L
Hct 33.6 L
Plt Count 154 D
Sodium 137
Potassium 3.5
Chloride 106
Carbon Dioxide 27
BUN 11
Creatinine 0.7
Glucose 104 H
Calcium 9.2
Total Bilirubin 0.9
AST 20
ALT 13
Alkaline Phosphatase 50
Vital Signs:
Vital Signs
Temp Pulse Resp BP Pulse Ox
98.0 F 58 18 133/62 97
12/13/24 10:05 12/13/24 10:05 12/13/24 10:05 12/13/24 10:05 12/13/24 10:17
I&O
12/12/24 12/13/24 12/14/24
06:59 06:59 06:59
Intake Total 2325 / 2325 200 / 200
Output Total 600 / 600
Balance 1725 / 1725 200 / 200
Physical Exam
-
General: No Apparent Distress
HEENT: Normocephalic and Atraumatic
Respiratory: Negative Wheezes
Cardiac: Regular Rhythm and S1/S2
GI: Soft and Nontender
Genito-urinary: No Costovertebral Tender
Neuro: AO x 3
Psych: Calm
Data Reviewed
-
Total Time Spent with Patient (in minutes): 42
Labs: Labs Reviewed by me
--- NOTE | 2024-12-13 12:38 | W.DCSUMMARY ---
Discharge Summary
Discharge Data
Date of Admission: 12/12/24
Date of Discharge: 12/13/24
-
Pending Results: No
Hospital Course
74 y/o F presented on 12/12 with 24 hours history of right upper abdominal pain, nausea and vomiting. She was seen in ER and a CT showed findings consistent with acute cholecystitis. Patient was placed on IV fluids and IV abx and taken to the
operating room on the morning of 12/13. She underwent successful lap evans procedure. Post-operatively her pain was well controlled and she tolerated a regular diet. She was discharged home on 12/13 to follow up with PCP and General surgery in 2
weeks.
Discharge Plan
-
Patient Disposition: Home (Routine Discharge)
Discharge Diagnosis/Procedures: Acute cholecystitis. Laparoscopic cholecystectomy.
Condition: Good
Diet: No restrictions
Activity: No strenuous activity
Driving Restrictions: As prior to admission
Bathing Restrictions: OK to Shower
Activity Restrictions/Additional Instructions:
Instructions following Laparoscopic Cholecystectomy
Please call [phone] if you have any questions or concerns after your surgery.
Wound Care:
Your incisions are covered with skin glue which will come off on its own in 5-10 days.
It is ok to shower the day after your surgery. Do not scrub the incisions, let soap and water wash over them and pat dry.
� Bruising around your incisions is normal.
� Using ice packs will help minimize this swelling.
� No swimming or soaking incisions for 1 week.
� Your stitches will dissolve and do not need to be removed.
Urinary retention:
If you are unable to urinate 6-8 hours after your surgery, please call [phone] to discuss further management.
Activity:
No heavy lifting more than 15 pounds for the next 3 weeks, then you may gradually lift heavier objects as tolerated by discomfort. Otherwise activity as tolerated by your comfort level.
Pain Management:
Use Tylenol, ibuprofen and ice packs to treat your pain.
� You may take 650 milligrams of Tylenol (Max 3 grams per day) every 6 hours, and 600 mg of ibuprofen also every 6 hours. (you can alternate them every 3 hours)
� You may use an ice pack to your incision as needed.
� If you still have pain not controlled by these measures, take your prescription pain medication as prescribed.
Medications:
You may resume your home medications.
You may resume your Eliquis on 12/16/2024 at your usual dose and time
Bowel Medications:
Prescription pain medication can make you constipated. If you take this medication, also take colace 100 mg twice daily (this is over the counter). If this is not sufficient, you may take Miralax (polyethylene glycol) to help move your bowels.
Diet:
After your procedure, there are no dietary restrictions. However, you may notice some loose stools with fatty meals for up to 4 weeks after surgery. If this is the case, please adjust to a low fat diet as needed.
Driving restrictions:
No driving if you are taking prescription pain medication or if you think your normal reaction time and attentiveness has been slowed by your surgery.
Things to Look out for:
Worsening Abdominal pain, fever, jaundice, redness or drainage from incision
Call Doctor for:
Please call if you notice worsening redness or drainage from incision(s) lasting longer than 5 days after your surgery, any foul-smelling drainage from the incision, pain not controlled by pain medications, persistent nausea and vomiting, or for any
fevers greater than 101.3 F. The number for questions/concerns is [phone]
Follow-up:
A follow-up appointment will be scheduled with your surgeon in 3-4 weeks. Please call prior to your appointment if you have any questions or concerns. [phone]
Referrals:
Bong Whittaker MD [Active, Surgical] - in two to three weeks
Shayna Jain MD [Family Provider, Family Practice]
Prescriptions:
New
acetaminophen 325 mg tablet
650 mg PO Q6HPRN PRN (Reason: mild pain) Qty: 14 0RF
tramadol 50 mg tablet
25 mg PO Q6HPRN PRN (Reason: severe pain/breakthrough pain) Qty: 8 0RF
Continued
metoprolol succinate 100 MG tablet extended release 24 hr
100 mg PO HS
amlodipine 5 MG tablet
5 mg PO DAILY
desloratadine 5 MG tablet
5 mg PO DAILY
vitamin B complex [B-Complex] 1 TAB tablet
1 tab PO DAILY
[place] 3-6-9 1,200 MG capsule
1,200 mg PO BID
Glucosamine Chondroitin 1 EACH capsule
1 cap PO DAILY
cranberry 500 MG capsule
500 mg PO HS
Ni-C with Bioflavonoids 1 EACH tablet
1 tab PO DAILY
evening primrose oil 500 mg Capsule
1,000 mg PO DAILY
rosuvastatin [Crestor] 5 mg Tablet
5 mg PO QPM
calcium carbonate-vitamin D3 [Calcium 500 + D] 500 mg-10 mcg (400 unit) Tablet
1 tab PO DAILY
Ocu Support
3 cap PO DAILY
omeprazole 20 mg Capsule,Delayed Release(Dr/Ec)
20 mg PO DAILY
sertraline 50 mg Tablet
50 mg PO DAILY
olopatadine 0.2 % Drops
1 drp BOTH EYES DAILY
Xlear
1 spray intranasal DAILY
Held
Eliquis 5 mg Tablet
5 mg PO BID
Hold Instructions: Resume on 12/16/24.
Discharge Orders:
Discharge Patient (As Directed); Ordered 12/13/24
Ordered By: Bong Whittaker
Discharge Date and Time
Print Language: BENINESE
[2024-12-13] MEDS: ZOLOFT 50 MG PO (12:45)
[2024-12-13] MEDS: OLOPATADINE 0.1% OPHTHALMIC SOLUTION 1 DROP OPHTH (12:45)
[2024-12-13] MEDS: CLARITIN 10 MG PO (12:45)
--- NOTE | 2024-12-13 13:46 | CM ---
Patient seen at bedside
IA Completed
s/p Laparoscopic Cholecystectomy with Cholangiogram
dc potenitally today or tomorrow
IMM explained & signed. In chart
Patient resides with her in [place] [facility]
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
spoke with Arlen at the [facility] they can transport patient back until 7pm
[employer] transport # to call given to patient [phone] if needed tomorrow
Patient states if dc today friends would be able to transport todaY
PLOF: independent
DME in the home: shower chair, walker, elevated toilet seat
Denies VN/Rehab
PCP: Shayna Jain
[facility]
PLAN: Home, no needs
if dc today friends will transport her
== END 2024-12-13 17:17 | disposition home or self-care (01) | DRG 418 ==
LOC: 2 SOUTH 13:24
PROVIDERS: ADMITTING PHYSICIAN Internal Medicine; CONSULT PHYSICIAN Surgery; EMERGENCY PHYSICIAN Emergency Medicine; FAMILY PHYSICIAN Family Medicine
PROC: BF101ZZ Fluoroscopy of Bile Ducts using Low Osmolar Contrast (ICD-10-PCS; 2024-12-13)
PROC: 0FT44ZZ Resection of Gallbladder, Percutaneous Endoscopic Approach (ICD-10-PCS; 2024-12-13)
DX: K80.00 Calculus of gallbladder with acute cholecystitis without obstruction (principal); K82.1 Hydrops of gallbladder; Z79.01 Long term (current) use of anticoagulants; I48.0 Paroxysmal atrial fibrillation; K21.9 Gastro-esophageal reflux disease without esophagitis; F32.A Depression, unspecified; I10 Essential (primary) hypertension; Z87.891 Personal history of nicotine dependence; Z90.49 Acquired absence of other specified parts of digestive tract; Z88.5 Allergy status to narcotic agent; Z88.0 Allergy status to penicillin; Z79.899 Other long term (current) drug therapy; Z88.1 Allergy status to other antibiotic agents; Z85.828 Personal history of other malignant neoplasm of skin; E03.9 Hypothyroidism, unspecified; E78.00 Pure hypercholesterolemia, unspecified
CPT/HCPCS: 74177; 74300; 76000; 80048; 80053; 80076; 81003; 83690; 84132; 85025; 85027; 86850; 86900; 86901; 88304; 96361; 96374; 96375; 96376; 99285; A4300; Q9967

== ENCOUNTER → 2024-12-16 10:11 | Outpatient (REF) | payer MEDICARE, OTHER, SELFPAY ==
[2024-12-16 10:49] LABS: HDL Cholesterol 54 mg/dl; LDL Cholesterol, Calculated 30 mg/dl; Very Low Density Lipoprotein 14 mg/dl (0-30)
== END ==
LOC: OLABPV 10:11
PROVIDERS: ATTENDING PHYSICIAN Internal Medicine
DX: I48.0 Paroxysmal atrial fibrillation (principal); I10 Essential (primary) hypertension
CPT/HCPCS: 36415; 80061

== ENCOUNTER → 2024-12-22 13:50 | Outpatient (REF) | payer MEDICARE, OTHER, SELFPAY | LOC: WDC 13:50 | PROVIDERS: ATTENDING PHYSICIAN Obstetrics & Gynecology; FAMILY PHYSICIAN Family Medicine | DX: Z12.31 Encounter for screening mammogram for malignant neoplasm of breast (principal) | CPT/HCPCS: 77063; 77067 ==

== ENCOUNTER → 2025-02-17 10:07 | Outpatient (REF) | payer MEDICARE, OTHER, SELFPAY | LOC: RAD 10:07 | PROVIDERS: ATTENDING PHYSICIAN Family Medicine | DX: R91.8 Other nonspecific abnormal finding of lung field (principal) | CPT/HCPCS: 71260; Q9967 ==